=== PATIENT | female | born 1975 | race Caucasian/White ===

== ENCOUNTER 2018-05-03 05:22 | Emergency (ER) | payer OTHER ==
[~2018-05-03] VITALS: Ht 170.1 cm; Wt 81.6 kg
[~2018-05-03 05:22] MED LIST: ALBUTEROL2.5 MG/0.5 INH; BACTRIM DS 8001 TA1 PO; BACTROBAN CREAM15 GM PO; CIPRO500 MG PO; DOXYCYCLINE HY100 M5 PO; DUONEB 3 MG/3 ML3 M1 INH; FEXOFENADINE H180 MG PO; FLEXERIL10 MG PO; FLONASE 0.05% 121 EA NAS; LYRICA150 MG PO; NEURONTIN100 MG PO; PREDNICOT20 MG PO; TESSALON PERLE100 M1 PO; TESSALON PERLE200 MG PO; ULTRAM50 MG PO; VICODIN 5/500 505 MG PO; ZITHROMAX Z PA250 MG PO; ZITHROMAX Z-PA250 MG PO; ZYRTEC10 M1 PO; [UNRECOGNIZED DRUG - OTHER] PO
[2018-05-03 06:02] LABS: BASO % 0.1 % (0.0-1.0); EOS % 0.2 % (1.0-4.0); HEMOGLOBIN 16.4 g/dl (12.0-16.0); LYMPH # 2.6 10*3/uL (1.3-4.4); LYMPH % 15.1 % (27.0-41.0); MEAN CELL VOLUME 94.5 fl (81.0-99.0); MEAN CORPUSCULAR HGB CONC 32.8 g/dl (33.0-37.0); MEAN PLATELET VOLUME 9.6 fl (9.6-12.3); MONO # 0.6 10*3/uL (0.1-1.0); MONO % 3.3 % (3.0-9.0); NEUT # 14.2 10*3/uL (2.3-7.9); NEUT % 80.8 % (47.0-73.0); PLATELET COUNT AUTOMATED 417 10*3/uL (130-400); RED BLOOD COUNT 5.29 10*6/uL (4.10-5.10); RED CELL DISTRI WIDTH 13.5 % (0-14.5); WHITE BLOOD COUNT 17.5 10*3/uL (4.8-10.8)
[2018-05-03 06:12] LABS: ALBUMIN 4.1 gm/dl (3.1-4.5); ALKALINE PHOSPHATASE 86 U/L (45-117); BUN 12 mg/dl (7-24); CHLORIDE 106 mmol/L (98-107); CREATININE 1.06 mg/dL (0.55-1.02); LIPASE 119 U/L (73-393); POTASSIUM 3.9 mmol/L (3.5-5.1); SGOT/AST 13 IU/L (3-35); SGPT/ALT 29 U/L (12-78); SODIUM 143 mmol/L (136-145); TOTAL PROTEIN 8.1 gm/dL (6.4-8.2)
[2018-05-03 06:16] LABS: TROPONIN I < 0.015 ng/ml (<0.045)
== END 2018-05-03 08:12 | disposition left against medical advice (07) ==
LOC: ED 05:22
PROVIDERS: Emergency Medicine Emergency Medical Services
DX: R10.32 Left lower quadrant pain (principal); R19.7 Diarrhea, unspecified; R11.10 Vomiting, unspecified; Z88.0 Allergy status to penicillin; Z88.1 Allergy status to other antibiotic agents

== ENCOUNTER 2018-09-03 10:01 | Emergency (ER) | payer OTHER ==
[~2018-09-03] VITALS: Ht 175.2 cm; Wt 90.7 kg
[2018-09-03 11:23] LABS: HEMATOCRIT 49.4 % (37.0-47.0); HEMOGLOBIN 16.4 g/dl (12.0-16.0); MEAN CELL VOLUME 94.1 fl (81.0-99.0); MEAN CORPUSCULAR HGB 31.2 pg (27.0-31.0); MEAN CORPUSCULAR HGB CONC 33.2 g/dl (33.0-37.0); MEAN PLATELET VOLUME 10.4 fl (9.6-12.3); PLATELET COUNT AUTOMATED 290 10*3/uL (130-400); RED BLOOD COUNT 5.25 10*6/uL (4.10-5.10); WHITE BLOOD COUNT 4.8 10*3/uL (4.8-10.8)
[2018-09-03 11:25] LABS: BILIRUBIN NEGATIVE (NEGATIVE); BLOOD TRACE-LYSED (NEGATIVE); CLARITY CLOUDY (CLEAR); COLOR YELLOW (YELLOW); GLUCOSE NEGATIVE (NEGATIVE); KETONE NEGATIVE (NEGATIVE); LEUKO ESTERASE TRACE (NEGATIVE); NITRITE NEGATIVE (NEGATIVE); UROBILINOGEN 0.2 E.U./dl (0.2-1.0)
[2018-09-03 11:36] LABS: ALBUMIN 3.6 gm/dl (3.1-4.5); BUN 6 mg/dl (7-24); CHLORIDE 106 mmol/L (98-107); CREATININE 0.95 mg/dL (0.55-1.02); POTASSIUM 4.1 mmol/L (3.5-5.1); SGOT/AST 34 IU/L (3-35); SGPT/ALT 24 U/L (12-78); SODIUM 139 mmol/L (136-145); TOTAL PROTEIN 8.1 gm/dL (6.4-8.2)
[2018-09-03 11:42] LABS: ALKALINE PHOSPHATASE 69 U/L (45-117)
[2018-09-03 11:53] LABS: BACTERIA 2+; EPITHELIAL CELLS 20-25
[2018-09-03 12:13] LABS: ATYPICAL LYMPHS 1 % (0-0); PLATELET SUFFICIENCY NORMAL (NORMAL); TOTAL CELLS COUNTED 100 #CELLS
[2018-09-03] MEDS ORDERED: SEPTDS PO (12:55)
[2018-09-03] MEDS ORDERED: ROBITUSSIN DM 105 ML PO (12:55)
[2018-09-03] MEDS ORDERED: PYRIDIUM100 MG PO (12:55)
== END 2018-09-03 13:01 | disposition home or self-care (01) ==
LOC: ED 10:01
PROVIDERS: Nurse Practitioner Family
DX: J20.9 Acute bronchitis, unspecified (principal); N39.0 Urinary tract infection, site not specified; E86.0 Dehydration; Z88.0 Allergy status to penicillin; Z88.1 Allergy status to other antibiotic agents; Z79.899 Other long term (current) drug therapy

== ENCOUNTER 2019-07-01 12:02 | Emergency (ER) | payer OTHER ==
[~2019-07-01] VITALS: Ht 177.8 cm; Wt 90.7 kg
[~2019-07-01 12:02] MED LIST changes: +PYRIDIUM100 MG PO; +ROBITUSSIN DM 105 ML PO; +SEPTDS PO
[2019-07-01 13:15] LABS: BASO # 0.1 10*3/uL (0.0-0.1); BASO % 1.5 % (0.0-1.0); EOS # 0.2 10*3/uL (0.0-0.4); EOS % 3.1 % (1.0-4.0); HEMATOCRIT 46.1 % (37.0-47.0); HEMOGLOBIN 15.4 g/dl (12.0-16.0); LYMPH # 2.1 10*3/uL (1.3-4.4); LYMPH % 39.7 % (27.0-41.0); MEAN CELL VOLUME 92.2 fl (81.0-99.0); MEAN CORPUSCULAR HGB 30.8 pg (27.0-31.0); MEAN CORPUSCULAR HGB CONC 33.4 g/dl (33.0-37.0); MEAN PLATELET VOLUME 9.2 fl (9.6-12.3); MONO # 0.8 10*3/uL (0.1-1.0); MONO % 14.5 % (3.0-9.0); NEUT # 2.1 10*3/uL (2.3-7.9); PLATELET COUNT AUTOMATED 313 10*3/uL (130-400); RED CELL DISTRI WIDTH 13.2 % (0-14.5); WHITE BLOOD COUNT 5.2 10*3/uL (4.8-10.8)
[2019-07-01 13:30] LABS: ALBUMIN 3.6 gm/dl (3.1-4.5); ALKALINE PHOSPHATASE 68 U/L (45-117); BUN 6 mg/dl (7-24); CHLORIDE 109 mmol/L (98-107); CREATININE 0.88 mg/dL (0.55-1.02); LIPASE 47 U/L (73-393); SGOT/AST 16 IU/L (3-35); SGPT/ALT 18 U/L (12-78); SODIUM 138 mmol/L (136-145); TOTAL PROTEIN 7.9 gm/dL (6.4-8.2)
[2019-07-01 13:50] LABS: BILIRUBIN NEGATIVE (NEGATIVE); BLOOD NEGATIVE (NEGATIVE); CLARITY SL CLOUDY (CLEAR); COLOR YELLOW (YELLOW); GLUCOSE NEGATIVE (NEGATIVE); KETONE NEGATIVE (NEGATIVE); LEUKO ESTERASE NEGATIVE (NEGATIVE); NITRITE NEGATIVE (NEGATIVE); UROBILINOGEN 0.2 E.U./dl (0.2-1.0)
[2019-07-01 14:10] LABS: BACTERIA 2+; MUCOUS 1+
[2019-07-01] MEDS ORDERED: NAPROSYN500 MG PO (16:23)
[2019-07-01] MEDS ORDERED: METHOCARBAMOL500 M1 PO (16:23)
== END 2019-07-01 16:30 | disposition home or self-care (01) ==
LOC: ED 12:02
PROVIDERS: Nurse Practitioner Family
DX: R10.12 Left upper quadrant pain (principal); R10.13 Epigastric pain; R11.0 Nausea; R50.9 Fever, unspecified; F17.200 Nicotine dependence, unspecified, uncomplicated; Z88.0 Allergy status to penicillin; Z88.1 Allergy status to other antibiotic agents; Z79.2 Long term (current) use of antibiotics; Z79.899 Other long term (current) drug therapy

== ENCOUNTER 2020-07-06 08:39 | Emergency (ER) | payer OTHER ==
[~2020-07-06 08:39] MED LIST changes: +METHOCARBAMOL500 M1 PO; +NAPROSYN500 MG PO
[2020-07-06 09:07] LABS: MEAN CELL VOLUME 92.9 fl (81.0-99.0); MEAN CORPUSCULAR HGB 30.3 pg (27.0-31.0); MEAN CORPUSCULAR HGB CONC 32.6 g/dl (33.0-37.0); MEAN PLATELET VOLUME 9.5 fl (9.6-12.3); PLATELET COUNT AUTOMATED 350 10*3/uL (130-400); RED BLOOD COUNT 4.52 10*6/uL (4.10-5.10); WHITE BLOOD COUNT 17.1 10*3/uL (4.8-10.8)
[2020-07-06 09:22] LABS: ALBUMIN 3.3 gm/dl (3.1-4.5); ALKALINE PHOSPHATASE 78 U/L (45-117); BUN 7 mg/dl (7-24); CHLORIDE 102 mmol/L (98-107); CREATININE 0.79 mg/dL (0.55-1.02); SGOT/AST 14 IU/L (3-35); SGPT/ALT 17 U/L (12-78); SODIUM 136 mmol/L (136-145); TOTAL PROTEIN 7.3 gm/dL (6.4-8.2)
[2020-07-06 09:30] LABS: TOTAL CELLS COUNTED 100 #CELLS
[2020-07-06 09:31] LABS: PLATELET SUFFICIENCY NORMAL (NORMAL)
== END 2020-07-06 13:10 | disposition federal hospital, planned readmission (88) ==
LOC: ED 08:39
PROVIDERS: Emergency Medicine
DX: R22.1 Localized swelling, mass and lump, neck (principal); R06.89 Other abnormalities of breathing; M54.2 Cervicalgia; Z20.828 Contact with and (suspected) exposure to other viral communicable diseases; Z98.890 Other specified postprocedural states; Z88.0 Allergy status to penicillin; Z88.1 Allergy status to other antibiotic agents; Z79.899 Other long term (current) drug therapy; Z79.2 Long term (current) use of antibiotics; Z87.891 Personal history of nicotine dependence